=== PATIENT | male | born 1980 | race Caucasian/White ===

== ENCOUNTER 2020-08-08 15:39 | Emergency (ER) | payer BC, SELFPAY ==
[2020-08-08 16:40] VITALS: BP 163/93; BP 181/96; PULSE 104; PULSE 80; RESP 21; TEMP 36.7; O2SAT 98; BMI 35.5
--- NOTE | 2020-08-08 16:58 | HMH.EDUTC ---
[facility] [place] Disposition Clinical Impression: Fluid level behind tympanic membrane of both ears Otitis media Qualifiers: Otitis media type: suppurative Chronicity: acute Laterality: right Recurrence: non-recurrent Spontaneous tympanic membrane rupture: without spontaneous rupture Qualified Code(s): H66.001 - Acute suppurative otitis media without spontaneous rupture of ear drum, right ear Disposition: Home, Self-Care Condition on Discharge: Good Instructions: Middle Ear Infection Additional Instructions: Start antibiotic as soon as possible and be sure to take as ordered for full length of time even though he should start feeling better in 24-48 hours. Tylenol or Motrin as needed for pain or fever Encourage fluids, water, Gatorade, Powerade, Pedialyte if /toddler/child Warm compresses often helps when placed over ear Return immediately for new or worsening symptoms no noticeable improvement in 48-72 hours and in 10-14 days to ensure the ears are return to baseline. Follow-up with primary care Prescriptions: cephALEXin [Cephalexin 500mg Tab] 500 mg PO BID 10 Days #20 tab Prescription Printed Referrals: Provider,Referral, [Primary Care Provider] - Forms: Work/School Release Time of Disposition: 17:07 Medical Decision Making - Abelino Inquiry Pt receiving controlled substance: No Vital Signs: 08/08/20 16:40 Temperature 98.1 F Temperature Source Oral Pulse Rate [Left Brachial] 80 Pulse Rate [Orthostatic Sitting Left Brachial] 80 Pulse Rate [Orthostatic Standing Left Brachial] 104 H Respiratory Rate 21 Blood Pressure [Left Arm] 163/93 H Blood Pressure [Orthostatic Sitting Left Arm] 163/93 H Blood Pressure [Orthostatic Standing Left Arm] 181/96 H Blood Pressure Mean [Left Arm] 116 Blood Pressure Source [Left Arm] Automatic Cuff Blood Pressure Position [Left Arm] Sitting 02 Sat by Pulse Oximetry 98 Oxygen Delivery Method Room Air [facility] [place] HPI - General Chief complaint: Urgent Treatment Center Stated complaint: Dizzy,nausa Time Seen by Provider: 08/08/20 16:58 Mode of Arrival: Ambulatory Source of Information: Patient Limitations: No Limitations Description of Symptoms (Recalled from Triage Doc. by RN): PATIENT C/O DIZZINESS WITH NAUSEA THAT STARTED LAST NIGHT HEENT Symptoms (Recalled from RN notes): No Resp Symptoms (Recalled from RN notes): No Skin Symptoms (Recalled from RN notes): No MS Symptoms (Recalled from RN notes): No Functional Status (Recalled from RN notes): WNL - History of Present Illness Provider Complaint: 39 yr old male presents for dizziness and nausea. pt stats he got up in the middle of the night and felt dizzy and nausea. he said he went back to bed and the symptoms went away. Pt states when he got up t get ready for work he again felt dizzy and nausea. pt denies soa,cp,pressure. pt states he has had no more symptoms since this am. has eatten but not drank much - Related Data Previous Rx's Medication Instructions Recorded cephALEXin [Cephalexin 500mg Tab] 500 mg PO BID 10 Days #20 tab 08/08/20 Allergies Allergy/AdvReac Type Severity Reaction Status Date / Time levofloxacin Allergy Verified 08/08/20 16:56 Penicillins Allergy Verified 08/08/20 16:56 - Worker's Comp Is this a Worker's Comp case?: No [facility] History - Hepatitis A Screen Drug use history?: No High risk sexual behaviors?: No History of sexually transmitted infection?: No Currently employed?: No Childcare worker?: No Do you have indoor plumbing?: Yes Do you have electricity?: Yes Attestation statement:: This patient has been screened for Hepatitis A risk factors. I have reviewed the patient's past medical history: Yes - Social History Alcohol Intake: never Occupational Status: other ROS Obtained: Yes Systems reviewed as appropriate & no additional complaints - Constitutional Constitutional: Reports system reviewed and no additional complaints, except as docu, Denies body ache, Denies chills,
[2020-08-08 17:09] VITALS: BP 163/93; PULSE 80; RESP 21; TEMP 36.7; O2SAT 98
== END 2020-08-08 17:14 | disposition home or self-care (01) ==
PROVIDERS: Emergency Provider Nurse Practitioner Family
DX: H66.001 Acute suppurative otitis media without spontaneous rupture of ear drum, right ear (principal); Z88.0 Allergy status to penicillin
CPT/HCPCS: 99202; G0463

== ENCOUNTER 2020-09-24 20:31 | Emergency (ER) | payer BC, SELFPAY ==
[2020-09-24] VITALS (8 sets, daily range): BP systolic 129–150; BP diastolic 83–104; PULSE 91–112; RESP 14–18; TEMP 36.6; O2SAT 95–97; BMI 34.9
--- NOTE | 2020-09-24 20:30 | ECG_ITS ---
APPROVED REPORT Exam: Resting ECG HR:112 bpm ECG Measurements Heart Rate 112 AXES [place] 194 P 51 QRSd 78 QRS 64 QT 320 T 24 QTc [address] elevation, probably due to early repolarization Borderline ECG Electronically signed by : Kehinde Milian, 09/26/2020 17:33:17
--- NOTE | 2020-09-24 20:45 | XR_ITS ---
PROCEDURE INFORMATION: Exam: XR Chest Exam date and time: 09/24/2020 8:45 PM Age: 39 years old Clinical indication: Left-sided; Patient HX: HTN, left sided chest pain, nonsmoker; Additional info: Cp TECHNIQUE: Imaging protocol: XR of the chest. Views: 2 views. COMPARISON: No relevant prior studies available. FINDINGS: Lungs: Unremarkable. No consolidation. Pleural spaces: Unremarkable. No pleural effusion. No pneumothorax. Heart/Mediastinum: Unremarkable. No cardiomegaly. Bones/joints: Unremarkable. IMPRESSION: No acute findings.
--- NOTE | 2020-09-24 21:41 | HMH.EDCP ---
ED Disposition Clinical Impression: Atypical chest pain, Elevated blood pressure reading Disposition: Home, Self-Care Condition on Discharge: Good Instructions: DI for Atypical Chest Pain Additional Instructions: see card saturday am and recheck in ed if increased sx Referrals: Provider,Referral, [Primary Care Provider] - - Critical Care Critical Care Time: No Attestation: On 09/24/20, the high probability of a clinically significant, sudden or life threatening deterioration of the following system(s) required my full and direct attention, intervention and personal management. The time I documented below is in addition to time spent performing reported procedures but includes the following listed in this critical care notation. Medical Decision Making - Medical Records Medical records reviewed: Yes: I reviewed the patient's medical records. - Abelino Inquiry Pt receiving controlled substance: No Vital Signs: 09/24/20 20:33 09/24/20 21:01 09/24/20 21:30 Temperature 96 F L Temperature Source Oral Pulse Rate 105 H 107 H Pulse Rate [Right] 112 H Respiratory Rate 18 17 16 Blood Pressure 144/90 H 146/101 H Blood Pressure [Right Arm] 150/104 H Blood Pressure Mean Blood Pressure Mean [Right Arm] 119 Blood Pressure Source [Right Arm] Automatic Cuff Blood Pressure Position [Right Arm] Supine 02 Sat by Pulse Oximetry 96 95 95 Oxygen Delivery Method Room Air 09/24/20 21:53 09/24/20 22:17 09/24/20 22:30 Temperature Temperature Source Pulse Rate 99 H 91 H 93 H Pulse Rate [Right] Respiratory Rate 15 14 14 Blood Pressure 147/94 H 144/89 H 135/90 Blood Pressure [Right Arm] Blood Pressure Mean 103 Blood Pressure Mean [Right Arm] Blood Pressure Source [Right Arm] Blood Pressure Position [Right Arm] 02 Sat by Pulse Oximetry 96 97 Oxygen Delivery Method 09/24/20 23:00 09/24/20 23:30 09/25/20 00:00 Temperature Temperature Source Pulse Rate 96 H 91 H 84 Pulse Rate [Right] Respiratory Rate 16 18 17 Blood Pressure 134/90 129/83 145/88 H Blood Pressure [Right Arm] Blood Pressure Mean 101 Blood Pressure Mean [Right Arm] Blood Pressure Source [Right Arm] Blood Pressure Position [Right Arm] 02 Sat by Pulse Oximetry 95 95 Oxygen Delivery Method - Lab Data Lab results reviewed: Yes: I reviewed the patient's lab results. Lab Results 09/24/20 21:50: WBC 10.3, RBC 4.45 L, Hgb 13.4 L, Hct 38.6 L, MCV 86.8, MCH 30.0, MCHC 34.6, RDW 14.0, Plt Count 191, MPV 8.7, Neut % (Auto) 78.4, Lymph % (Auto) 16.2, [place] % (Auto) 4.3, Eos % (Auto) 0.8, Baso % (Auto) 0.3, Neut # (Auto) 8.0 H, Lymph # (Auto) 1.7, [place] # (Auto) 0.4, Eos # (Auto) 0.1, Baso # (Auto) 0.0, ESR 50 H 09/24/20 21:50: Sodium 139, Potassium 3.8, Chloride 104, Carbon Dioxide 27, Anion Gap 11.8, BUN 12, Creatinine 0.90, Estimated Creat Clear 166, Estimated GFR 95, Est GFR ( Amer) 115, Glucose 110 H, Calcium 8.2 L, Total Bilirubin 0.4, AST 23, ALT 33, Alkaline Phosphatase 99, Troponin I < 0.01, C-Reactive Protein 34.7 H, Total Protein 7.1, Albumin 3.9, Globulin 3.2, Albumin/Globulin Ratio 1.2, Procalcitonin 0.066 09/24/20 23:55: Troponin I < 0.01 Result diagrams: 09/24/20 21:50 09/24/20 21:50 Orders (Tests/Meds): ED MEDICATIONS Generic Name Dose Route Start Last Admin Trade Name Freq PRN Reason Stop Dose Admin Sodium Chloride 1,000 mls @ 999 mls/hr 09/24/20 21:00 09/24/20 20:51 Sod Chlor 0.9% 1000ml Bag IV 09/24/20 22:00 999 mls/hr .Q1H1M ALYSSA Administration Nitroglycerin 0.4 mg 09/24/20 20:45 09/24/20 20:48 Nitroglycerin 0.4mg Sl Tablet SL 10/24/20 20:44 0.4 mg Q5MINP PRN Administration Chest Pain Discontinued Medications Generic Name Dose Route Start Last Admin Trade Name Freq PRN Reason Stop Dose Admin Aspirin 324 mg 09/24/20 20:45 06/26/21 20:48 Aspirin 81mg Chewable Tablet PO 09/24/20 20:46 324 mg ONCE ONE Administra
--- NOTE | 2020-09-24 21:57 | PC.NURSE ---
pt gone to radiology.
[2020-09-24 22:09] LABS: Alanine Aminotransferase 33 U/L (12-78); Albumin Level 3.9 g/dl (3.5-5.0); Albumin/Globulin Ratio 1.2 (1.1-1.8); Alkaline Phosphatase 99 U/L (38-126); Anion Gap 11.8 mEq/L (5-15); Aspartate Amino Transferase 23 U/L (17-59); Bilirubin,Total 0.4 mg/dl (0.2-1.3); Blood Urea Nitrogen 12 mg/dl (9-20); Calcium 8.2 mg/dl (8.4-10.2); Carbon Dioxide 27 mmol/L (22.0-30.0); Chloride 104 mmol/L (98-107); Creatinine Clearance Estimated 166 mL/min (50-200); Estimated Glomerular Filt Rate 95 ml/min (>60); GFR (African American) 115 ML/MIN (>60); Globulin 3.2 g/dL (1.3-3.2); Glucose 110 mg/dl (74-100); Potassium 3.8 mmoL/L (3.5-5.1); Sodium 139 mmol/L (136-145); Total Protein,Serum 7.1 g/dl (6.3-8.2)
[2020-09-24 22:11] LABS: Basophils % 0.3 % (0.1-2.0); Eosinophils # 0.1 K/mm3 (0.0-0.4); Eosinophils % 0.8 % (0.1-12.0); Hematocrit 38.6 % (42.0-52.0); Hemoglobin 13.4 g/dL (14.1-18.0); Lymphocytes # 1.7 K/mm3 (0.7-4.5); Lymphocytes % 16.2 % (10-50); Mean Corpuscular HGB Conc 34.6 g/dL (31.8-35.4); Mean Corpuscular Volume 86.8 fl (80-94); Mean Platelet Volume 8.7 fl (7.4-10.4); Monocytes # 0.4 K/mm3 (0.1-1.0); Monocytes % 4.3 % (1.7-9.3); Neutrophils % 78.4 % (37.0-80.0); Platelet Count 191 K/mm3 (142-424); Red Blood Count 4.45 M/mm3 (4.60-6.20); White Blood Count 10.3 K/mm3 (4.8-10.8)
[2020-09-24 22:14] LABS: C-Reactive Protein 34.7 mg/L (0-4)
[2020-09-24 22:25] LABS: Troponin I < 0.01 ng/ml (0.00-0.034)
[2020-09-24 22:28] LABS: Procalcitonin 0.066 ng/mL (0.0-2.0)
[2020-09-24 22:41] LABS: Erythrocyte Sedimentation Rate 50 mm/hr (0-15)
[2020-09-25] VITALS: BP 145/88; PULSE 84; RESP 17; O2SAT 95
[2020-09-25 00:19] LABS: Troponin I < 0.01 ng/ml (0.00-0.034)
[2020-09-25 00:40] VITALS: BP 141/71; PULSE 82; RESP 16; TEMP 36.7; O2SAT 96
== END 2020-09-25 00:48 | disposition home or self-care (01) ==
PROVIDERS: Emergency Provider Emergency Medicine
DX: R07.89 Other chest pain (principal); R03.0 Elevated blood-pressure reading, without diagnosis of hypertension
CPT/HCPCS: 71046; 80053; 84145; 84484; 85025; 85651; 86140; 93005; 96365; 96375; 99282

== ENCOUNTER → 2020-10-19 13:47 | Outpatient (CLI) | payer BC, SELFPAY ==
--- NOTE | 2020-10-19 13:52 | CA_ITS ---
APPROVED REPORT EXAM: Comprehensive 2D, Doppler, and color-flow Echocardiogram Car Lot Attendant: Glo Kaminski, RCS, RVS Ht: 5 ft 8 in Wt: 230lbs BSA: 2.17 BP: 152/96 mmHg Indications: CP, HTN, SOB, Murmur 2D Dimensions IVSd 1.04 cm LVEF (Visual) 59.80 % PWd 1.03 cm LA Volume 42.80 mL LVDd 4.35 cm LA Volume Index 19.70 mL/m2 (M/F) 16-34 LVDs 3.08 cm Aortic Root 2.86 cm Left Atrium 3.33 cm LVOT 1.84 cm (M/F) 1.5-2.5 M-Mode Dimensions LA Diam 3.70 cm (1.9-4.0) LVDd 4.71 cm (3.5-5.7) Ao Diam 3.40 cm (2.0-3.7) LVDs 2.99 cm (3.5-5.7) EF (Teich) 66.30% EPSs 0.13 cm FS 36.50% EDV (Teich) 102.90 mL TAPSE 2.35 (<1.7) ESV (Teich) 34.70 mL LV Diastology E Decel Time 173.00 (160-240 msec) E/A Ratio 1.15 MED E' 11.00 (< 7 cm/sec) MED A' 12.30 cm/s E'/MED E' Ratio 5.65 (>14) LAT E' 14.40 (<10 cm/sec) LAT A' 9.90 cm/s E/LAT E' Ratio 4.32 (>14) Pulm Vein s 65.00 cm/sec Pulm Vein d 21.00 cm/sec Ar-A Duration 97.00 msec Aortic Valve LVOT Max 93.00 (70-110 cm/s) LVOT VTI 17.31 cm AoV Peak Eleazar. 138.00 (50-130 cm/s) AI PHT 443.00 ms AO Peak GR. 7.60 mmHg AO Mean GR. 3.80 (<5 mmHg) AO VTI 25.36 (18-25 cm) EUGENE (VTI) 1.81 (2.5-4.5 cm2) Mitral Valve MV A Velocity 54.00 (40-130 cm/s) E/A Ratio 1.15 MV Decel. Time 173.00 (160-240 ms) Pulmonary Valve PV Peak Velocity 120.00 (50-150 cm/s) [place] End VMAX 182.00 cm/s Tricuspid Valve TR P. Velocity 182.00 cm/s RAP Estimate 10.00 mmHg RVSP 23.20 mmHg Left Ventricle Left atrium is upper limit of the normal size, left ventricle is normal size, left ventricle wall thickness is upper limit of normal, there is preserved left ventricular systolic function, visually estimated ejection fraction 55% with no regional wall motion abnormality, diastolic parameters are within normal range. Right Ventricle Right atrium and right ventricle are normal size and contractility. Aortic Valve Aortic valve is minimally thickened and fibrosed, there is no aortic stenosis, there is mild aortic insufficiency. Mitral Valve Mitral valve is grossly normal, there is trace mitral regurgitation. Tricuspid Valve Tricuspid valve grossly normal, there is trace tricuspid regurgitation, tricuspid regurgitation jet velocity is inadequate for calculation of the right ventricular systolic pressure. Pulmonic Valve Pulmonic valve is poorly visualized. Great Vessels Aortic root is normal size. Pericardium No significant pericardial effusion noted. Conclusion 1. Normal left ventricular size, preserved left ventricular systolic function, visually estimated ejection fraction 55% with no regional wall motion abnormality, diastolic parameters are within normal range. 2. Mild aortic, trace mitral and tricuspid regurgitation. 3. No significant pericardial effusion noted. Electronically signed by : Juvenal Quinonez, 10/20/2020 09:32:11
== END ==
PROVIDERS: PCP Nurse Practitioner Family; Visit Provider Nurse Practitioner Family
DX: R07.89 Other chest pain (principal)
CPT/HCPCS: 93306

== ENCOUNTER → 2020-10-27 07:36 | Outpatient (CLI) | payer BC, SELFPAY ==
--- NOTE | 2020-10-27 07:37 | CA_ITS ---
APPROVED REPORT Exam: Exercise Treadmill Technologist: Yanelis Sharma, Ht: 5 ft 8 in Wt: 220 lbs BSA: 2.13 m2 HR: 88 bpm BP: 136/71 mmHg Medical History Medications: Losartan,,,,, HCTZ,,,,, Stress Test Details Test: Jose R HR Resting HR: 92 bpm Max Heart Rate (APMHR): 183.546984 bpm Max HR Achieved: 168 bpm Target HR (85% APMHR): 155.469814 bpm % of APMHR: 91.80 Recovery HR: 111 bpm BP Resting BP: 142/77 mmHg Max BP: 200/76 mmHg Recovery BP: 169.0/70.0 mmHg ECG Resting ECG: NSR, PVC, NST wave abns in leads III and aVF Clinical Exercise duration: 09:53 min Highest Stage Achieved: Exercise capacity: 12.8 METs Stress ECG Conclusion Exercised 9:53 on Jose R Protocol Max HR: 168 % of PM: 92% Max BP: 200/76 MET's: 128 Test stopped due to: SOA, Leg fatigue Symptoms: SOA, leg fatigue. No CP. Arrhythmias/Ectopy: Occ PVC. ST-T Changes: Exaggeration of baseline abns in leads III, aVF. Transient NS T wave changes in anterior leads. Conclusion: Probably normal GXT. GTX only (no imaging). Test Summary REST . . . . . . . Sitting REST . . . . . . . Standing REST 05:50 0.0 0.0 92 . 142/ 77 . . Stage 1 01:00 10.0 1.7 107 . . . . Stage 1 02:00 10.0 1.7 113 . . . . Stage 1 03:00 10.0 1.7 115 . 198/ 80 . . Stage 2 01:00 12.0 2.5 123 . . . . Stage 2 02:00 12.0 2.5 130 . . . . Stage 2 03:00 12.0 2.5 133 . . . . Stage 3 01:00 14.0 3.4 148 . 190/ 75 . . Stage 3 02:00 14.0 3.4 151 . 190/ 75 . . Stage 3 03:00 14.0 3.4 158 . 200/ 76 . . Stage 4 00:53 16.0 4.2 168 . . . Stop exercise at 09:53 RECOVERY 01:00 0.0 0.0 157 . . . . RECOVERY 02:00 0.0 0.0 145 . 170/ 70 . . RECOVERY 03:00 0.0 0.0 130 . 170/ 70 . . RECOVERY 04:00 0.0 0.0 120 . 167/ 77 . . RECOVERY 05:00 0.0 0.0 119 . 167/ 77 . . RECOVERY 06:00 0.0 0.0 112 . 169/ 70 . . RECOVERY 07:00 0.0 0.0 111 . 169/ 70 . . RECOVERY 07:29 0.0 0.0 115 . 145/ 75 . . Electronically signed by : Juvenal Quinonez, 10/27/2020 15:09:47
== END ==
PROVIDERS: PCP Nurse Practitioner Family; Visit Provider Internal Medicine Cardiovascular Disease
DX: R07.89 Other chest pain (principal); I10 Essential (primary) hypertension
CPT/HCPCS: 93017

== ENCOUNTER → 2020-10-28 12:15 | Outpatient (CLI) | payer BC, SELFPAY ==
[2020-10-28 12:23] LABS: Basophils % 0.4 % (0.1-2.0); Eosinophils # 0.1 K/mm3 (0.0-0.4); Eosinophils % 2.3 % (0.1-12.0); Hematocrit 41.3 % (42.0-52.0); Hemoglobin 13.9 g/dL (14.1-18.0); Lymphocytes # 1.8 K/mm3 (0.7-4.5); Lymphocytes % 32.7 % (10-50); Mean Corpuscular HGB Conc 33.7 g/dL (31.8-35.4); Mean Corpuscular Hemoglobin 29.6 pg (27.0-31.2); Mean Corpuscular Volume 87.8 fl (80-94); Mean Platelet Volume 9.6 fl (7.4-10.4); Monocytes # 0.3 K/mm3 (0.1-1.0); Monocytes % 4.6 % (1.7-9.3); Neutrophils # 3.2 K/mm3 (1.8-7.8); Neutrophils % 60.1 % (37.0-80.0); Platelet Count 183 K/mm3 (142-424); Red Cell Distribution Width 13.9 % (11.5-17.5); White Blood Count 5.4 K/mm3 (4.8-10.8)
[2020-10-28 12:55] LABS: Alanine Aminotransferase 46 U/L (12-78); Albumin Level 4.4 g/dl (3.5-5.0); Albumin/Globulin Ratio 1.5 (1.1-1.8); Alkaline Phosphatase 100 U/L (38-126); Anion Gap 11.8 mEq/L (5-15); Aspartate Amino Transferase 28 U/L (17-59); Bilirubin,Total 0.6 mg/dl (0.2-1.3); Blood Urea Nitrogen 15 mg/dl (9-20); Calcium 8.8 mg/dl (8.4-10.2); Carbon Dioxide 29 mmol/L (22.0-30.0); Chloride 102 mmol/L (98-107); Chol/HDL Ratio 6.4 (1-3.5); Cholesterol 210 mg/dl (140-200); Estimated Glomerular Filt Rate 109 ml/min (>60); GFR (African American) 132 ML/MIN (>60); Glucose 104 mg/dl (74-100); HDL Cholesterol 33 mg/dl (40-60); Potassium 3.8 mmoL/L (3.5-5.1); Sodium 139 mmol/L (136-145); Total Protein,Serum 7.4 g/dl (6.3-8.2); Triglycerides 68 mg/dl (30-150); VLDL Cholesterol 14 mg/dL (0-40)
[2020-10-28 13:06] LABS: Direct LDL Cholesterol 149.49 mg/dL (100-129)
[2020-10-28 13:14] LABS: 25-OH Vitamin D, Total 27.2 ng/mL (30-100)
[2020-10-28 13:15] LABS: T4 (Thyroxine) 11.2 ug/dl (5.53-11.0)
[2020-10-28 13:29] LABS: Thyroid Stimulating Hormone 0.86 uIU/mL (0.465-4.68)
== END ==
PROVIDERS: Visit Provider Nurse Practitioner Family
DX: I10 Essential (primary) hypertension (principal); E55.9 Vitamin D deficiency, unspecified
CPT/HCPCS: 80053; 80061; 82306; 84436; 84443; 85025

== ENCOUNTER → 2020-12-19 08:57 | Outpatient (CLI) | payer BC, SELFPAY ==
[2020-12-19 09:45] LABS: Alanine Aminotransferase 39 U/L (12-78); Albumin Level 4.5 g/dl (3.5-5.0); Alkaline Phosphatase 101 U/L (38-126); Aspartate Amino Transferase 26 U/L (17-59); Bilirubin,Direct 0.1 mg/dl (0.0-0.4); Bilirubin,Indirect 0.2 mg/dL (0.0-0.9); Bilirubin,Total 0.3 mg/dl (0.2-1.3); Bilirubin,Unconjugated 0.3 mg/dL (0.0-1.1); Blood Urea Nitrogen 14 mg/dl (9-20); Calcium 9.3 mg/dl (8.4-10.2); Carbon Dioxide 32 mmol/L (22.0-30.0); Chloride 99 mmol/L (98-107); Chol/HDL Ratio 3.7 (1-3.5); Cholesterol 126 mg/dl (140-200); Estimated Glomerular Filt Rate 108 ml/min (>60); GFR (African American) 131 ML/MIN (>60); Glucose 123 mg/dl (74-100); HDL Cholesterol 34 mg/dl (40-60); Sodium 141 mmol/L (136-145); Total Protein,Serum 7.5 g/dl (6.3-8.2); Triglycerides 49 mg/dl (30-150); VLDL Cholesterol 10 mg/dL (0-40)
[2020-12-19 09:56] LABS: Direct LDL Cholesterol 77.32 mg/dL (100-129)
== END ==
PROVIDERS: Visit Provider Internal Medicine Cardiovascular Disease
DX: R07.89 Other chest pain (principal); I10 Essential (primary) hypertension; E78.5 Hyperlipidemia, unspecified
CPT/HCPCS: 36415; 80048; 80061; 80076

== ENCOUNTER → 2021-11-16 09:36 | Outpatient (CLI) | payer BC, SELFPAY ==
[2021-11-16 11:22] LABS: Alanine Aminotransferase 46 U/L (12-78); Albumin Level 4.5 g/dl (3.5-5.0); Alkaline Phosphatase 98 U/L (38-126); Aspartate Amino Transferase 33 U/L (17-59); Bilirubin,Direct 0.1 mg/dl (0.0-0.4); Bilirubin,Indirect 0.2 mg/dL (0.0-0.9); Bilirubin,Total 0.3 mg/dl (0.2-1.3); Bilirubin,Unconjugated 0.1 mg/dL (0.0-1.1); Chol/HDL Ratio 4.2 (1-3.5); Cholesterol 147 mg/dl (140-200); HDL Cholesterol 35 mg/dl (40-60); Total Protein,Serum 7.5 g/dl (6.3-8.2); Triglycerides 51 mg/dl (30-150); VLDL Cholesterol 10 mg/dL (0-40)
[2021-11-17 10:09] LABS: Direct LDL Cholesterol 92 mg/dL (100-129)
== END ==
PROVIDERS: Visit Provider Physician Assistant
DX: E78.5 Hyperlipidemia, unspecified (principal); I10 Essential (primary) hypertension
CPT/HCPCS: 36415; 80061; 80076

== ENCOUNTER → 2022-12-25 10:45 | Outpatient (CLI) | payer BC, SELFPAY ==
[2022-12-25 11:48] LABS: Alanine Aminotransferase 38 U/L (12-78); Alkaline Phosphatase 89 U/L (38-126); Aspartate Amino Transferase 28 U/L (17-59); Bilirubin,Direct 0.1 mg/dl (0.0-0.4); Bilirubin,Indirect 0.7 mg/dL (0.0-0.9); Bilirubin,Total 0.8 mg/dl (0.2-1.3); Bilirubin,Unconjugated 0.7 mg/dL (0.0-1.1); Chol/HDL Ratio 4.5 (1-3.5); Cholesterol 153 mg/dl (140-200); HDL Cholesterol 34 mg/dl (40-60); Total Protein,Serum 8.6 g/dl (6.3-8.2); Triglycerides 75 mg/dl (30-150); VLDL Cholesterol 15 mg/dL (0-40)
[2022-12-25 11:59] LABS: Direct LDL Cholesterol 90.29 mg/dL (100-129)
== END ==
PROVIDERS: Visit Provider Nurse Practitioner
DX: I11.9 Hypertensive heart disease without heart failure (principal); Z79.899 Other long term (current) drug therapy
CPT/HCPCS: 36415; 80061; 80076

== ENCOUNTER 2023-12-23 10:50 | Outpatient (CLI) | payer BC, SELFPAY ==
[2023-12-23 11:17] LABS: Basophils # 0.1 K/mm3 (0-0.2); Basophils % 1.3 % (0.1-2.0); Eosinophils # 0.1 K/mm3 (0.0-0.4); Eosinophils % 1.4 % (0.1-12.0); Hematocrit 44.1 % (42.0-52.0); Hemoglobin 14.6 g/dL (14.1-18.0); Lymphocytes # 1.4 K/mm3 (0.7-4.5); Lymphocytes % 22.7 % (10-50); Mean Corpuscular HGB Conc 33.2 g/dL (31.8-35.4); Mean Corpuscular Hemoglobin 31.2 pg (27.0-31.2); Mean Corpuscular Volume 94.2 fl (80-94); Mean Platelet Volume 9.3 fl (7.4-10.4); Monocytes # 0.3 K/mm3 (0.1-1.0); Monocytes % 5.2 % (1.7-9.3); Neutrophils # 4.2 K/mm3 (1.8-7.8); Neutrophils % 69.3 % (37.0-80.0); Platelet Count 196 K/mm3 (142-424); Red Blood Count 4.68 M/mm3 (4.60-6.20); White Blood Count 6.1 K/mm3 (4.8-10.8)
[2023-12-23 11:52] LABS: Alanine Aminotransferase 33 U/L (12-78); Albumin Level 4.7 g/dl (3.5-5.0); Alkaline Phosphatase 69 U/L (38-126); Anion Gap 6.2 mEq/L (5-15); Aspartate Amino Transferase 25 U/L (17-59); Bilirubin,Direct 0.2 mg/dl (0.0-0.4); Bilirubin,Indirect 0.4 mg/dL (0.0-0.9); Bilirubin,Total 0.6 mg/dl (0.2-1.3); Bilirubin,Unconjugated 0.4 mg/dL (0.0-1.1); Blood Urea Nitrogen 15 mg/dl (9-20); Calcium 9.7 mg/dl (8.4-10.2); Carbon Dioxide 32 mmol/L (22.0-30.0); Chloride 104 mmol/L (98-107); Chol/HDL Ratio 4.1 (1-3.5); Cholesterol 152 mg/dl (140-200); Estimated Glomerular Filt Rate 93 ml/min (>60); GFR (African American) 113 ML/MIN (>60); Glucose 109 mg/dl (74-100); HDL Cholesterol 37 mg/dl (40-60); Potassium 4.2 mmoL/L (3.5-5.1); Sodium 138 mmol/L (136-145); Total Protein,Serum 7.5 g/dl (6.3-8.2); Triglycerides 45 mg/dl (30-150); VLDL Cholesterol 9 mg/dL (0-40)
[2023-12-23 12:04] LABS: Direct LDL Cholesterol 92.24 mg/dL (100-129)
[2023-12-23 12:17] LABS: Free T4 (Free Thyroxine) 1.06 ng/dl (0.78-2.19)
[2023-12-23 12:30] LABS: Thyroid Stimulating Hormone 1.14 uIU/mL (0.465-4.68)
== END 2023-12-23 23:59 | disposition home or self-care (01) ==
LOC: LAB 10:51
PROVIDERS: Visit Provider Nurse Practitioner Family
DX: E78.5 Hyperlipidemia, unspecified (principal); I10 Essential (primary) hypertension
CPT/HCPCS: 36415; 80048; 80061; 80076; 84439; 84443; 85025

== ENCOUNTER 2025-01-25 10:45 | Outpatient (CLI) | payer BC, SELFPAY ==
[2025-01-25 11:20] LABS: Hematocrit 45.9 % (42.0-52.0); Hemoglobin 15.7 g/dL (14.1-18.0); Immature Granulocytes % 0.3 %; Mean Corpuscular HGB Conc 34.2 g/dL (31.8-35.4); Mean Corpuscular Hemoglobin 30.8 pg (27.0-31.2); Mean Corpuscular Volume 90.2 fl (80-94); Nucleated Red Blood Cells % 0 %; Platelet Count 211 K/mm3 (142-424); Red Blood Count 5.09 M/mm3 (4.60-6.20); Red Cell Distribution Width-SD 40.6 fL; White Blood Count 5.9 K/mm3 (4.8-10.8)
[2025-01-25 11:34] LABS: Albumin Level 3.7 g/dl (3.5-5.0); Chloride 98 mmol/L (98-107); Potassium 3.9 mmoL/L (3.5-5.1); Sodium 136 mmol/L (136-145)
[2025-01-25 11:36] LABS: Blood Urea Nitrogen 17 mg/dl (9-20); Creatinine,Serum 0.90 mg/dl (0.66-1.25); Estimated Glomerular Filt Rate 93 ml/min (>60); GFR (African American) 112 ML/MIN (>60)
[2025-01-25 11:37] LABS: Alanine Aminotransferase 46 U/L (12-78); Alkaline Phosphatase 93 U/L (38-126); Anion Gap 9.9 mEq/L (5-15); Aspartate Amino Transferase 28 U/L (17-59); Bilirubin,Direct 0.0 mg/dl (0.0-0.4); Bilirubin,Indirect 0.6 mg/dL (0.0-0.9); Bilirubin,Total 0.6 mg/dl (0.2-1.3); Bilirubin,Unconjugated 0.5 mg/dL (0.0-1.1); Calcium 9.2 mg/dl (8.4-10.2); Carbon Dioxide 32 mmol/L (22.0-30.0); Cholesterol 179 mg/dl (140-200); Glucose 119 mg/dl (74-100); HDL Cholesterol 45 mg/dl (40-60); Magnesium 2.0 mg/dl (1.6-2.3); Total Protein,Serum 7.9 g/dl (6.3-8.2); Triglycerides 56 mg/dl (30-150)
[2025-01-25 11:55] LABS: Free T4 (Free Thyroxine) 1.13 ng/dl (0.78-2.19)
[2025-01-25 12:10] LABS: Thyroid Stimulating Hormone 1.04 uIU/mL (0.465-4.68)
== END 2025-01-25 23:59 | disposition home or self-care (01) ==
LOC: LAB 10:46
PROVIDERS: Visit Provider Nurse Practitioner Family
DX: E78.5 Hyperlipidemia, unspecified (principal); I10 Essential (primary) hypertension
CPT/HCPCS: 36415; 80048; 80061; 80076; 83735; 84439; 84443; 85025